=== PATIENT | male | born 1985 | race Caucasian/White ===

== ENCOUNTER 2024-08-17 00:18 | Inpatient (IN) | payer MEDICAID, SELFPAY ==
--- NOTE | ~2024-08-17 | CT_ITS ---
EXAMINATION: CT HEAD WITHOUT CONTRAST CLINICAL INFORMATION: Head injury. COMPARISON: None available. TECHNIQUE: Contiguous axial imaging was performed from the skull base to vertex without intravenous administration of contrast. This CT examination was performed using dose optimization techniques as appropriate, variously including the following: *Automated exposure control. *Adjustment of mA and/or kV according to patient size (this includes techniques or standardized protocols for targeted exams where dose is matched to indication/reason for exam; i.e. extremities or head). *Use of iterative reconstruction technique. DLP: 603 mGy-cm FINDINGS: There is no evidence of acute intracranial hemorrhage or edematous territorial infarction. Boudreaux-white matter differentiation is preserved. There is no abnormal attenuation within the brain parenchyma. The ventricles are normal in morphology and size. No evidence for obstructive hydrocephalus. No abnormal mass effect or midline shift. No extra-axial fluid collections. No acute soft tissue or osseous abnormalities. Moderate mucosal thickening of the paranasal sinuses. The mastoid air cells and middle ear cavities are clear. CT/CT head/brain wo IV con IMPRESSION: 1. No evidence of acute intracranial hemorrhage or edematous territorial infarction. 2. Moderate sinonasal mucosal disease. Electronically signed by: Jasvir Bustillo DO 08/17/2024 10:38 PM EDT
[2024-08-17 00:26] VITALS: BP 116/83; PULSE 105; RESP 20; TEMP 36.8; O2SAT 98; BMI 26.4
[2024-08-17 01:04] LABS: Hematocrit 41.9 % (42.0-52.0); Hemoglobin 13.9 g/dl (14.0-18.0); Mean Corpuscular HGB Conc 33.2 g/dl (31.0-36.0); Mean Corpuscular Hemoglobin 25.8 pg (27.0-33.0); Mean Corpuscular Volume 77.7 fL (80.0-98.0); Platelet Count 412 X10*3/uL (160-400); Red Blood Count 5.39 X10*6/uL (4.60-5.80); Red Cell Distribution Width 14.8 % (11.0-16.0); White Blood Count 10.6 X10*3/uL (4.8-10.8)
[2024-08-17 01:18] LABS: Alanine Aminotransferase 33 U/L (0-40); Albumin Level 4.3 g/dL (3.5-5.0); Alkaline Phosphatase 109 U/L (39-117); Anion Gap 17 (12-20); Aspartate Amino Transferase 24 U/L (5-37); Bilirubin Total 0.5 mg/dL (0.0-1.0); Blood Urea Nitrogen 15 mg/dL (9-16); Calcium 8.7 mg/dL (8.4-10.2); Carbon Dioxide 20 mmol/L (22-29); Chloride 108 mmol/L (96-108); Creatinine Clr Calc Pharmacy 100.6; Estimated Glomerular Filt Rate > 60; Ethanol 143 mg/dL; Glucose Random 131 mg/dL (60-115); Potassium 3.6 mmol/L (3.3-5.1); Sodium 141 mmol/L (135-145); Total Protein 7.3 g/dL (6.5-8.0)
--- NOTE | 2024-08-17 01:50 | ED_ITS ---
HPI - Psych General Chief Complaint: Psychiatric Symptoms Stated Complaint: SI, ETOH Time Seen by Provider: 08/17/24 01:38 Source: patient Mode of arrival: ambulatory Limitations: no limitations History of Present Illness ED Provider: Dr. Jane Zacarias HPI Narrative: Patient comes to the emergency room complaining of suicidal ideation. Patient states that earlier today she had an argument with his . Patient states that he drank a lot of alcohol, stated earlier today that he has wanted to . Patient states that today he drank alcohol smoke marijuana. Patient was planning to kill himself by getting into a car accident. However, patient states that he stopped himself because he has an 8-year-old daughter and he needs to be there for her. Patient denies HI Related Data Allergies Allergy/AdvReac Type Severity Reaction Status Date / Time No Known Allergies Allergy Verified 08/17/24 00:29 Review of Systems 2 Review of Systems: Constitutional : No Weight loss, No Fever, No Chills, No Night Sweats, No Fatigue, No Malaise ENT/Mouth : No Hearing loss, No Ear Pain, No Nasal Congestion, No Sinus Pain, No Hoarseness, No sore throat, No Rhinorrhea, No Swallowing Difficulty Eyes: No Eye Pain, No Swelling, No Redness, No Foreign Body, No Discharge, No Vision Changes Cardiovascular : No Chest Pain, No SOB, No Dyspnea on Exertion, No Orthopnea, No Edema, No Palpitations Respiratory : No Cough, No Sputum, No Wheezing, No Smoke Exposure, No Dyspnea Gastrointestinal : No Nausea, No Vomiting, No Diarrhea, No Constipation, No abdominal Pain, No Hematochezia, No Melena Genitourinary : no irregular bleeding, No Dysuria, No Urinary Frequency, No Hematuria, No Urinary Incontinence, No Urgency, No Flank Pain, No Urinary Flow Changes, No Hesitancy Musculoskeletal : No joint pain, No Myalgias, No Joint Swelling Skin : No Skin Lesions, No rash Neuro : No Weakness, No Numbness, No Paresthesias, No Loss of Consciousness, No Dizziness, No Headache Psych : Complaining of anxiety, depression, polysubstance abuse, alcohol abuse Heme/Lymph: No Bruising, No Bleeding,No Lymphadenopathy Endocrine : No Polyuria, No Polydipsia, No Temperature Intolerance PMFSH Past Medical History Medical History (Updated 08/17/24 @ 01:57 by Jane Zacarias MD) Anxiety and depression Social History Social History Alcohol intake: current Alcohol intake frequency: 3 or more drinks per day Alcohol type: hard liquor Smoked in Last 30 Days: Yes Use of substances other than those prescribed or required for medical reasons: Yes Substance Use Type: Marijuana Substance Use Frequency: Chronic Longstanding Last Used Substance: Just Prior to Admission Advance Directives: No Advance Directives Information Provided: No Physical Exam 2 Vital Signs: Vital Signs: Last Vital Signs Temp 98.4 F 08/17/24 05:55 Pulse 113 H 08/17/24 05:55 Resp 17 08/17/24 05:55 BP 116/86 08/17/24 05:55 Pulse Ox 95 08/17/24 05:55 O2 Del Method Room Air 08/17/24 05:55 BMI result Body Mass Index 26.4 Const: Other: Appearance: Alert. Oriented X3. No acute distress. Calm, cooperative, clinically sober Eyes: Pupils equal, round and reactive to light. ENT: Pharynx normal. Neck: Normal inspection. Neck supple. No lymph nodes noted. No crepitus CVS: Normal heart rate and rhythm. Pulses normal. Normal S1 and S2 Respiratory: No respiratory distress. Breath sounds normal. No Wheezing. No rales Abdomen: Soft and nontender. No rigidity. No distention. Skin: Skin warm and dry. Normal skin color. Normal skin turgor. Extremities: No lower extremity edema. No Lacerations. No Rash Neuro: Oriented X 3. No motor deficit. No sensory deficit. Moving all extremities. No slurred speech. CN 2 through 12 grossly intact Psych: calm, cooperative, normal affect Course Course Course Narrative: Patient is on a Section 12 Waiting to be seen by the care team Reevaluation(s) Reevaluation #1: Physician observation continued. Uneventful night. Vital signs stable. No complaints from nursing overnight. Med reconciliation reviewed and done. Pending disposition. Will continue to monitor. Medical Decision Making Medical Decision Making [facility] Narrative: My interpretation of labs, no significant hematology abnormality. Chemistry within normal limits, ETOH 143. -care team consult pending -patient is on a Section -physician observation started at 02:00 Differential Diagnosis Differential Diagnoses: The differential diagnosis associated with the presentation includes (Anxiety, depression, suicide ideation) Admission/Observation Consideration of admission/observation: Escalation of care including admission/observation considered (Patient is under physician observation waiting to be seen by the care team, patient on a Section 12) Lab Data MDM Lab Attestation statement: I reviewed the patient's lab results. 08/17/24 00:57 08/17/24 00:57 Labs: Lab Results 08/17/24 08/17/24 Range/Units 00:57 06:09 WBC 10.6 (4.8-10.8) X10*3/uL RBC 5.39 (4.60-5.80) X10*6/uL Hgb 13.9 L (14.0-18.0) g/dl Hct 41.9 L (42.0-52.0) % MCV 77.7 L (80.0-98.0) fL MCH 25.8 L (27.0-33.0) pg MCHC 33.2 (31.0-36.0) g/dl RDW 14.8 (11.0-16.0) % Plt Count 412 H (160-400) X10*3/uL MPV 9.0 L (9.4-12.4) fL Absolute Nucleated RBC 0.000 (0.0-0.012) X10*3/uL Nucleated RBC % (auto) 0.0 (0.0-0.2) /100WBC Sodium 141 (135-145) mmol/L Potassium 3.6 (3.3-5.1) mmol/L Chloride 108 (96-108) mmol/L Carbon Dioxide 20 L (22-29) mmol/L Anion Gap 17 (12-20) BUN 15 (9-16) mg/dL Creatinine 1.06 (0.5-1.4) mg/dL Estim Creat Clear Calc 100.6 Estimated GFR > 60 Random Glucose 131 H (60-115) mg/dL Calcium 8.7 (8.4-10.2) mg/dL Total Bilirubin 0.5 (0.0-1.0) mg/dL AST 24 (5-37) U/L ALT 33 (0-40) U/L Alkaline Phosphatase 109 (39-117) U/L Total Protein 7.3 (6.5-8.0) g/dL Albumin 4.3 (3.5-5.0) g/dL Urine Color Yellow Urine Appearance Clear Urine pH 5.5 (5.0-9.0) Ur Specific [place] 1.025 (1.005-1.025) Urine Protein Trace (Neg-Trace) mg/dL Urine Glucose (UA) Negative (Negative) mg/dL Urine Ketones Trace (Negative) mg/dL Urine Blood Negative (Negative) Urine Nitrite Negative (Negative) Ur Leukocyte Esterase Negative (Negative) Salicylates < 5.0 L (15-30) mg/dL Urine Opiates Screen Not Detected (Not Detect) Ur Buprenorphine Scrn Not Detected (Not Detect) ng/mL Ur Oxycodone Screen Not Detected (Not Detect) ng/mL Urine Methadone Screen Not Detected (Not Detect) ng/mL Urine Fentanyl Screen Not Detected (Not Detect) Acetaminophen < 3 (<30) mcg/mL Ur Barbiturates Screen Not Detected (Not Detect) Ur Phencyclidine Scrn Not Detected (Not Detect) Ur Amphetamines Screen Not Detected (Not Detect) U Benzodiazepines Scrn Not Detected (Not Detect) Urine Cocaine Screen POSITIVE H (Not Detect) U Marijuana (THC) Screen POSITIVE H (Not Detect) Ethyl Alcohol 143 mg/dL Critical Care Time Critical Care Time Critical Care Time: Yes Total Critical Care Time: 35 Attestation: I have personally provided critical care time. Time includes review of lab data, radiology results, discussion with consultants, and monitoring for potential decompensation. Intervention performed as documented. Discharge Plan Discharge Clinical Impression: Suicidal ideation, Polysubstance abuse Patient Disposition: Still a Patient Interventions: Garden-Suicide Risk Severity Scale Last Done: 08/17/24 01:00 Print Language: English
--- NOTE | 2024-08-17 01:59 | PC.NURSE ---
Took report from LAURA Ireland, Pt being admitted to room 6 .
[2024-08-17 02:21] LABS: Acetaminophen LAB < 3 mcg/mL (<30); Salicylate < 5.0 mg/dL (15-30)
--- NOTE | 2024-08-17 02:39 | PC.NURSE ---
Pt given a sandwich and juice . a blanket
[2024-08-17 05:55] VITALS: BP 116/86; PULSE 113; RESP 17; TEMP 36.9; O2SAT 95
[2024-08-17 06:19] LABS: Appearance Urine Clear; Color Urine Yellow; Glucose Urine UA Negative (Negative); Leukocyte Esterase Urine Negative (Negative); Nitrite Urine Negative (Negative); PH 5.5 (5.0-9.0); Specific Gravity - Urine 1.025 (1.005-1.025); Urine Blood Negative (Negative); Urine Ketones Trace mg/dL (Negative); Urine Protein Trace mg/dL (Neg-Trace)
[2024-08-17 06:26] LABS: Amphetamine Screen Urine Not Detected (Not Detect); Barbiturates, Urine Not Detected (Not Detect); Benzodiazepines Screen Urine Not Detected (Not Detect); Buprenorphine Scr Not Detected (Not Detect); Cannabinoid Screen Urine POSITIVE (Not Detect); Cocaine Screen Urine POSITIVE (Not Detect); Fentanyl, urine Not Detected (Not Detect); Methadone Screen, Urine Not Detected (Not Detect); Opiate Screen Urine Not Detected (Not Detect); Oxycodone Screen Urine Not Detected (Not Detect); Phencyclidine Screen Urine Not Detected (Not Detect)
[2024-08-17 09:58] VITALS: BP 125/78; PULSE 85; RESP 16; O2SAT 95
--- NOTE | 2024-08-17 10:02 | ECG_ITS ---
Test Reason : psych admit,check qt interval Blood Pressure : / mmHG Vent. Rate : 076 BPM Atrial Rate : 076 BPM P-R Int : 120 ms QRS Dur : 078 ms QT Int : 370 ms P-R-T Axes : 043 039 030 degrees QTc Int : 416 ms Normal sinus rhythm Normal ECG No previous ECGs available Referred By: Jane Zacarias Electronically Signed By:JOSE GILLILAND MD
--- NOTE | 2024-08-17 10:47 | MHC.CARE ---
patient seen by CARE team, appears appropriate for and is agreeable to an adult iploc
[2024-08-17] MEDS: Ibuprofen 400 MG TABLET PO (10:58)
--- NOTE | 2024-08-17 15:03 | PHA.MEDREC ---
Addendum entered by Mihaela Foy RPh 08/17/24 15:17: ANGÉLICA reviewed Original Note: Pharmacy Consult ? Medication Reconciliation Pharmacy has reviewed the medication reconciliation done by nursing.
--- NOTE | 2024-08-17 16:04 | PC.NURSE ---
RN to RN with Tannery on M5. Pt has been calm, sleeping on and off.
[2024-08-17] MEDS: Acetaminophen 325 MG TABLET 650 MG PO (16:12)
[2024-08-17 18:16] VITALS: BP 120/83; PULSE 74; RESP 18; TEMP 36.8; O2SAT 97
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
[2024-08-17] MEDS: Thiamine HCL 100 MG TABLET PO (18:26)
[2024-08-17] MEDS: Nicotine Polacrilex 2 MG GUM BUCCAL (18:27)
[2024-08-17] MEDS: hydrOXYzine HCL 25 MG TABLET PO (18:27)
[2024-08-17 20:00] VITALS: BP 138/99; PULSE 88; TEMP 36.7; O2SAT 97
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
[2024-08-18 09:02] VITALS: BP 115/70; PULSE 75; RESP 16; TEMP 36.7; O2SAT 96
[2024-08-18 09:04] LABS: Alanine Aminotransferase 24 U/L (0-40); Albumin Level 3.7 g/dL (3.5-5.0); Alkaline Phosphatase 106 U/L (39-117); Anion Gap 10 (12-20); Aspartate Amino Transferase 15 U/L (5-37); Bilirubin Total 0.3 mg/dL (0.0-1.0); Blood Urea Nitrogen 13 mg/dL (9-16); Calcium 9.3 mg/dL (8.4-10.2); Carbon Dioxide 29 mmol/L (22-29); Chloride 105 mmol/L (96-108); Cholesterol 145 mg/dL (<200); Creatinine Clr Calc Pharmacy 119.8; Estimated Glomerular Filt Rate > 60; Glucose Fasting 150 mg/dL (60-99); HDL Cholesterol 41 mg/dL (>40); Iron 62 mcg/dL (45-160); LDL Cholesterol Calculated 75 mg/dL (<100); Percent Iron Saturation 21 % (15-50); Potassium 4.4 mmol/L (3.3-5.1); Sodium 140 mmol/L (135-145); Total Iron Binding Capacity 293 mcg/dL (228-428); Total Protein 6.3 g/dL (6.5-8.0); Triglycerides 148 mg/dL (<150); Unsaturated Iron Binding 231 ug/dL
[2024-08-18 09:24] LABS: Folate 8.6 ng/mL (> or = 4.0); Vitamin B12 258 pg/mL (200-900)
[2024-08-18] MEDS: Thiamine HCL 100 MG TABLET PO (11:08)
[2024-08-18] MEDS: Escitalopram Oxalate 10 MG TABLET PO (11:08)
[2024-08-18] MEDS: Nicotine 21 MG PATCH.TD24 TRANSDERMA (11:09)
--- NOTE | 2024-08-18 12:17 | MHC.RECOVRN ---
AUDIT-C Brief Intervention Pt had positive screen for unhealthy alcohol use on admission, subsequently met with t/w to discuss alcohol use and recovery supports/options. This principal technical writer met with patient to discuss current alcohol use and concerns related to increased risk of alcohol related problems.? Pt reports he has been drinking for as far back as he can remember and as of late has been drinking 750ml bottle of Bacardi/day. Discussed how alcohol use has impacted health, including negative impact on mental health and relationship with family Withdrawal History: N/A Treatment History: N/A Supports:? and children Discussed risk reduction strategies including drinking below the recommended limit. Provided pt with written resources including information on inpatient and outpatient treatment, EARNESTINE, harm reduction, and recovery coaching. Pt plans to consider EARNESTINE and referral to [facility] upon D/C. Pt provided with t/w contact information if questions or concerns arise. Denies other questions or concerns at this time. T/W will F/U with pt tomorrow on decision for outpatient tx and possibly recommend start on EARNESTINE. Report to ACS team and nurse Irvin.
[2024-08-18] MEDS: Acetaminophen 325 MG TABLET 650 MG PO (18:08)
[2024-08-18 20:00] VITALS: BP 117/63; PULSE 74; RESP 16; TEMP 36.6; O2SAT 97
--- NOTE | 2024-08-18 20:07 | PC.NURSE ---
CIWA for 08/18/24 @ 1600 entered by this RN per Primary RN report
[2024-08-19 08:40] VITALS: BP 141/81; PULSE 65; RESP 16; TEMP 36.3; O2SAT 98
[2024-08-19] MEDS: Escitalopram Oxalate 10 MG TABLET PO (08:53)
[2024-08-19] MEDS: Thiamine HCL 100 MG TABLET PO (08:53)
--- NOTE | 2024-08-19 09:35 | HO.PSYCHPN ---
Subjective Subjective Date of Service: 08/19/24 Reason For Visit: SI alcohol use dx Subjective Notes: Conditional Voluntary Interim History: Patient was seen and discussed in rounds today. Records and plans were reviewed. He is settling in fairly well. He is eating adequately but not sleeping well and I increase the trazodone to 100 mg. Side effects were reviewed again including priapism. No SI. No complaints or side effects. No changes were made today Review of Systems Review of Systems Poor sleep Yes all other systems are reviewed and are negative Mental Status Exam Mental Status Exam Narrative: In today's visit he is alert, oriented, pleasant and cooperative. Soft-spoken speech. Minimal eye contact. Affect is appropriate and subdued. No signs of psychosis. No delusions. No AVH. He is able to move all limbs. No abnormalities of gait. Cognitively he is grossly intact. Judgment is intact Diagnostics Vital Signs (24Hr): Vital Signs - 24 hr 08/18/24 20:00 Temperature 97.9 F Pulse Rate 74 Respiratory Rate 16 Blood Pressure 117/63 Pulse Oximetry 97 Oxygen Delivery Method Room Air BMI result Body Mass Index 26.4 Labs 08/17/24 00:57 08/18/24 08:16 Labs: Laboratory Results - last 48 hr 08/18/24 08:16 Sodium 140 Potassium 4.4 D Chloride 105 Carbon Dioxide 29 Anion Gap 10 L BUN 13 Creatinine 0.89 Estim Creat Clear Calc 119.8 Estimated GFR > 60 Fasting Glucose 150 H Calcium 9.3 D Iron 62 TIBC 293 % Saturation 21 Unsat Iron Binding 231 Total Bilirubin 0.3 AST 15 ALT 24 Alkaline Phosphatase 106 Total Protein 6.3 L Albumin 3.7 Triglycerides 148 Cholesterol 145 LDL Cholesterol, Calc 75 HDL Cholesterol 41 Vitamin B12 258 Folate 8.6 Imaging Radiology Impressions: ITS Impressions Head CT 08/17/24 20:17 IMPRESSION: 1. No evidence of acute intracranial hemorrhage or edematous territorial infarction. 2. Moderate sinonasal mucosal disease. Electronically signed by: Jasvir Bustillo DO 08/17/2024 10:38 PM EDT Medications Medications Current Medications Acetaminophen (Acetaminophen 325 Mg Tablet) 650 mg PO Q6H PRN PRN Reason: Headache/Pain Mild Scale (1-3) Last Admin: 08/18/24 18:08 Dose: 650 mg Al Hydroxide/Mg Hydroxide (Magnesium Hydrox/Alum Hydrox 30 Ml Oral.Susp) 30 ml PO Q6H PRN PRN Reason: Heartburn/Nausea Escitalopram Oxalate (Escitalopram Oxalate 10 Mg Tablet) 10 mg PO DAILY [facility] Last Admin: 08/19/24 08:53 Dose: 10 mg Hydroxyzine HCl (Hydroxyzine Hcl 25 Mg Tablet) 25 mg PO Q6H PRN PRN Reason: Anxiety Last Admin: 08/17/24 18:27 Dose: 25 mg Lorazepam (Lorazepam 1 Mg Tablet) 1 mg PO Q2H PRN PRN Reason: CIWA 8-11 Lorazepam (Lorazepam 1 Mg Tablet) 2 mg PO Q2H PRN PRN Reason: CIWA 12-15 Lorazepam (Lorazepam 1 Mg Tablet) 3 mg PO Q2H PRN PRN Reason: CIWA > 15, and call Magnesium Hydroxide (Milk Of Magnesia 30 Ml Oral.Susp) 30 ml PO DAILY PRN PRN Reason: Constipation Nicotine (Nicotine 21 Mg Patch.Td24) 21 mg TRANSDERMA DAILY [facility] Last Admin: 08/19/24 08:53 Dose: Not Given Nicotine Polacrilex (Nicotine Polacrilex 2 Mg Gum) 2 mg BUCCAL Q2H PRN PRN Reason: Nicotine Cravings Last Admin: 08/17/24 18:27 Dose: 2 mg Thiamine HCl (Thiamine Hcl 100 Mg Tablet) 100 mg PO DAILY [facility] Last Admin: 08/19/24 08:53 Dose: 100 mg Trazodone HCl (Trazodone Hcl 50 Mg Tablet) 50 mg PO BEDTIME MRX1 PRN PRN Reason: Insomnia Allergies Allergies Allergy/AdvReac Type Severity Reaction Status Date / Time No Known Allergies Allergy Verified 08/17/24 00:29 Assessment & Plan Assessment & Plan (1) Major depression, recurrent, chronic: Status: Acute Code(s): F33.9 - Major depressive disorder, recurrent, unspecified (2) PTSD (post-traumatic stress disorder): Status: Acute Code(s): F43.10 - Post-traumatic stress disorder, unspecified Plan Luke meets criteria for IP LOC. He was placed on a CIWA protocol but does not appear to be showing much signs of withdrawals. He is interested in starting medication and we discussed options and initiated Lexapro 10 mg daily. Side effects were reviewed. Outpatient referral to be made before discharge. 08/19: Continue current regimen and plans. Increase trazodone to 100 mg Patient educated on: medication risk/benefits Reason for continued inpatient stay Substantial Risk for: rapid decompensation Time Spent With Patient Time: Total time managing care of this patient today ____ minutes.
--- NOTE | 2024-08-19 10:02 | MHC.RECOVRN ---
Return visit to pt. following yesterdays meeting to assess his choices for recovery POC. Pt has reviewed the literature left to him yesterday along with information obtained from our discussion and denies any questions. He would like to try Naltrexone (injectable form) for his EARNESTINE part of his POC. T/W contacted senior occupational therapist provider Brandee Howell and requested order for Naltrexone oral form to determine pt's tolerance of the medication. Order obtained for Naltrexone 25mg PO QD x 3 days then increase to 50mg PO QD if pt tolerates. Referral placed to [facility] nurse Hendrix to F/U with pt. and schedule clinic appt. for medication f/u. Report to pt's nurse Irvin and ACS team provided. ACS available for F/U PRN
[2024-08-19] MEDS: Naltrexone HCl 50 MG TABLET 25 MG PO (12:03)
[2024-08-19 19:53] VITALS: BP 133/87; PULSE 85; RESP 20; TEMP 35.8; O2SAT 98
[2024-08-19] MEDS: traZODone HCL 100 MG TABLET PO (22:21)
[2024-08-19] MEDS: LORazepam 1 MG TABLET PO (22:21)
[2024-08-20 05:00] VITALS: BP 117/74; PULSE 86; RESP 18; TEMP 36.8; O2SAT 94
--- NOTE | 2024-08-20 08:59 | HO.PSYCHPN ---
Subjective Subjective Date of Service: 08/20/24 Reason For Visit: SI alcohol use dx Subjective Notes: Conditional Voluntary Interim History: Patient was seen and discussed in rounds today. Records and plans were reviewed. He is doing much better and has been stable. He is mostly in his room. He is not scoring on his CIWA and that was discontinued in addition to the associated Ativan orders. He had some anxiety and slight nausea to the naltrexone but he would like to stay with it and increase it in a day. Eating and sleeping adequately. No SI. Review of Systems Review of Systems Yes all other systems are reviewed and are negative Mental Status Exam Mental Status Exam Narrative: In today's visit he is alert, oriented, pleasant and cooperative. Soft-spoken speech. Minimal eye contact. Affect is appropriate and subdued. No signs of psychosis. No delusions. No AVH. He is able to move all limbs. No abnormalities of gait. Cognitively he is grossly intact. Judgment is intact Diagnostics Vital Signs (24Hr): Vital Signs - 24 hr 08/19/24 19:53 08/20/24 05:00 Temperature 96.4 F L 98.2 F Pulse Rate 85 86 Respiratory Rate 20 18 Blood Pressure 133/87 117/74 Pulse Oximetry 98 94 Oxygen Delivery Method Room Air Room Air BMI result Body Mass Index 26.4 Labs 08/17/24 00:57 08/18/24 08:16 Labs: Laboratory Results - last 48 hr 08/18/24 08:16 Sodium 140 Potassium 4.4 D Chloride 105 Carbon Dioxide 29 Anion Gap 10 L BUN 13 Creatinine 0.89 Estim Creat Clear Calc 119.8 Estimated GFR > 60 Fasting Glucose 150 H Calcium 9.3 D Iron 62 TIBC 293 % Saturation 21 Unsat Iron Binding 231 Total Bilirubin 0.3 AST 15 ALT 24 Alkaline Phosphatase 106 Total Protein 6.3 L Albumin 3.7 Triglycerides 148 Cholesterol 145 LDL Cholesterol, Calc 75 HDL Cholesterol 41 Vitamin B12 258 Folate 8.6 Imaging Radiology Impressions: ITS Impressions Head CT 08/17/24 20:17 IMPRESSION: 1. No evidence of acute intracranial hemorrhage or edematous territorial infarction. 2. Moderate sinonasal mucosal disease. Electronically signed by: Jasvir Bustillo DO 08/17/2024 10:38 PM EDT Medications Medications Current Medications Acetaminophen (Acetaminophen 325 Mg Tablet) 650 mg PO Q6H PRN PRN Reason: Headache/Pain Mild Scale (1-3) Last Admin: 08/18/24 18:08 Dose: 650 mg Al Hydroxide/Mg Hydroxide (Magnesium Hydrox/Alum Hydrox 30 Ml Oral.Susp) 30 ml PO Q6H PRN PRN Reason: Heartburn/Nausea Escitalopram Oxalate (Escitalopram Oxalate 10 Mg Tablet) 10 mg PO DAILY [facility] Last Admin: 08/19/24 08:53 Dose: 10 mg Hydroxyzine HCl (Hydroxyzine Hcl 25 Mg Tablet) 25 mg PO Q6H PRN PRN Reason: Anxiety Last Admin: 08/17/24 18:27 Dose: 25 mg Lorazepam (Lorazepam 1 Mg Tablet) 1 mg PO Q2H PRN PRN Reason: CIWA 8-11 Last Admin: 08/19/24 22:21 Dose: 1 mg Lorazepam (Lorazepam 1 Mg Tablet) 2 mg PO Q2H PRN PRN Reason: CIWA 12-15 Lorazepam (Lorazepam 1 Mg Tablet) 3 mg PO Q2H PRN PRN Reason: CIWA > 15, and call Magnesium Hydroxide (Milk Of Magnesia 30 Ml Oral.Susp) 30 ml PO DAILY PRN PRN Reason: Constipation Naltrexone HCl (Naltrexone Hcl 50 Mg Tablet) 25 mg PO DAILY [facility] Last Admin: 08/19/24 12:03 Dose: 25 mg Nicotine (Nicotine 21 Mg Patch.Td24) 21 mg TRANSDERMA DAILY [facility] Last Admin: 08/19/24 08:53 Dose: Not Given Nicotine Polacrilex (Nicotine Polacrilex 2 Mg Gum) 2 mg BUCCAL Q2H PRN PRN Reason: Nicotine Cravings Last Admin: 08/17/24 18:27 Dose: 2 mg Thiamine HCl (Thiamine Hcl 100 Mg Tablet) 100 mg PO DAILY [facility] Last Admin: 08/19/24 08:53 Dose: 100 mg Trazodone HCl (Trazodone Hcl 100 Mg Tablet) 100 mg PO BEDTIME MRX1 PRN PRN Reason: Insomnia Last Admin: 08/19/24 22:21 Dose: 100 mg Allergies Allergies Allergy/AdvReac Type Severity Reaction Status Date / Time No Known Allergies Allergy Verified 08/17/24 00:29 Assessment & Plan Assessment & Plan (1) Major depression, recurrent, chronic: Status: Acute Code(s): F33.9 - Major depressive disorder, recurrent, unspecified (2) PTSD (post-traumatic stress disorder): Status: Acute Code(s): F43.10 - Post-traumatic stress disorder, unspecified Plan Luke meets criteria for IP LOC. He was placed on a CIWA protocol but does not appear to be showing much signs of withdrawals. He is interested in starting medication and we discussed options and initiated Lexapro 10 mg daily. Side effects were reviewed. Outpatient referral to be made before discharge. 08/19: Continue current regimen and plans. Increase trazodone to 100 mg 08/20: Continue current plans and regimen. DC CIWA and Ativan orders Reason for continued inpatient stay Substantial Risk for: harm to self and med/psych decompensation Time Spent With Patient Time: Total time managing care of this patient today ____ minutes.
--- NOTE | 2024-08-20 09:37 | PC.NURSE ---
pt has been reporting difficulty sleeping at night and is currently asleep. Will reproach with morning scheduled medications
[2024-08-20] MEDS: Escitalopram Oxalate 10 MG TABLET PO (10:43)
[2024-08-20] MEDS: Naltrexone HCl 50 MG TABLET 25 MG PO (10:43)
[2024-08-20] MEDS: Thiamine HCL 100 MG TABLET PO (10:43)
[2024-08-20 14:35] VITALS: BP 138/78; PULSE 94; RESP 16; TEMP 36.6; O2SAT 97
[2024-08-20 20:00] VITALS: BP 149/91; PULSE 96; RESP 15; TEMP 36.4; O2SAT 95
[2024-08-20] MEDS: traZODone HCL 100 MG TABLET PO (20:45)
[2024-08-21 09:35] VITALS: BP 121/79; PULSE 69; RESP 16; TEMP 37.1; O2SAT 97
[2024-08-21] MEDS: Naltrexone HCl 50 MG TABLET 25 MG PO (09:36)
[2024-08-21] MEDS: Escitalopram Oxalate 10 MG TABLET PO (09:37)
[2024-08-21] MEDS: Thiamine HCL 100 MG TABLET PO (09:37)
--- NOTE | 2024-08-21 09:42 | HO.PSYCHPN ---
Subjective Subjective Date of Service: 08/21/24 Reason For Visit: SI alcohol use dx Interim History: met with patient; discussed with team; reviewed chart pt reports he's feeling way better. he denies any SI; says he wants to be sober, work and help his family. Reports sleeping well. Discussed after care and pt would like a program to help him with sobriety Mental Status Exam Mental Status Exam Narrative: Pt is alert and oriented; behavior is cooperative, friendly and calm; patient is not in distress; dressed in casual attire adequate hygiene; mood is described as way better and affect congruent; eye contact appropriate; Speech is normal rate, volume and prosody and not pressured; no psychomotor agitation/retardation present; thought process is organized and goal directed; Thought content is on tx; otherwise pertinent to relevant topics and without any delusional content, paranoid ideations or grandiosity; denies any SI/HI. There is no evidence of perceptual disturbance. Patients insight and judgment appear intact. Diagnostics Vital Signs (24Hr): Vital Signs - 24 hr 08/20/24 14:35 08/20/24 20:00 Temperature 97.8 F 97.5 F Pulse Rate 94 96 Respiratory Rate 16 15 Blood Pressure 138/78 149/91 H Pulse Oximetry 97 95 Oxygen Delivery Method Room Air BMI result Body Mass Index 26.4 Labs 08/17/24 00:57 08/18/24 08:16 Imaging Radiology Impressions: ITS Impressions Head CT 08/17/24 20:17 IMPRESSION: 1. No evidence of acute intracranial hemorrhage or edematous territorial infarction. 2. Moderate sinonasal mucosal disease. Electronically signed by: Jasvri Bustillo DO 08/17/2024 10:38 PM EDT Medications Medications Current Medications Acetaminophen (Acetaminophen 325 Mg Tablet) 650 mg PO Q6H PRN PRN Reason: Headache/Pain Mild Scale (1-3) Last Admin: 08/18/24 18:08 Dose: 650 mg Al Hydroxide/Mg Hydroxide (Magnesium Hydrox/Alum Hydrox 30 Ml Oral.Susp) 30 ml PO Q6H PRN PRN Reason: Heartburn/Nausea Escitalopram Oxalate (Escitalopram Oxalate 10 Mg Tablet) 10 mg PO DAILY [facility] Last Admin: 08/21/24 09:37 Dose: 10 mg Hydroxyzine HCl (Hydroxyzine Hcl 25 Mg Tablet) 25 mg PO Q6H PRN PRN Reason: Anxiety Last Admin: 08/17/24 18:27 Dose: 25 mg Magnesium Hydroxide (Milk Of Magnesia 30 Ml Oral.Susp) 30 ml PO DAILY PRN PRN Reason: Constipation Naltrexone HCl (Naltrexone Hcl 50 Mg Tablet) 25 mg PO DAILY [facility] Last Admin: 08/21/24 09:36 Dose: 25 mg Nicotine (Nicotine 21 Mg Patch.Td24) 21 mg TRANSDERMA DAILY [facility] Last Admin: 08/21/24 09:38 Dose: Not Given Nicotine Polacrilex (Nicotine Polacrilex 2 Mg Gum) 2 mg BUCCAL Q2H PRN PRN Reason: Nicotine Cravings Last Admin: 08/17/24 18:27 Dose: 2 mg Thiamine HCl (Thiamine Hcl 100 Mg Tablet) 100 mg PO DAILY [facility] Last Admin: 08/21/24 09:37 Dose: 100 mg Trazodone HCl (Trazodone Hcl 100 Mg Tablet) 100 mg PO BEDTIME MRX1 PRN PRN Reason: Insomnia Last Admin: 08/20/24 20:45 Dose: 100 mg Allergies Allergies Allergy/AdvReac Type Severity Reaction Status Date / Time No Known Allergies Allergy Verified 08/17/24 00:29 Assessment & Plan Assessment & Plan (1) Major depression, recurrent, chronic: Status: Acute Code(s): F33.9 - Major depressive disorder, recurrent, unspecified (2) PTSD (post-traumatic stress disorder): Status: Acute Code(s): F43.10 - Post-traumatic stress disorder, unspecified Plan Luke meets criteria for IP LOC. He was placed on a CIWA protocol but does not appear to be showing much signs of withdrawals. He is interested in starting medication and we discussed options and initiated Lexapro 10 mg daily. Side effects were reviewed. Outpatient referral to be made before discharge. 08/19: Continue current regimen and plans. Increase trazodone to 100 mg 08/20: Continue current plans and regimen. DC CIWA and Ativan orders 08/21 says doing much better; mood good, no SI, future oriented; wants to discuss aftercare Patient educated on: diagnosis, medication risk/benefits, substance abuse and therapeutic strategies Informed Consent: understands Reason for continued inpatient stay Substantial Risk for: stable for discharge Time Spent With Patient Time: Total time managing care of this patient today ____ minutes.
--- NOTE | 2024-08-21 14:32 | MHC.RECOVRN ---
[facility] appt upon discharge Met with patient in his room on M5, after his meeting with transport medic Fifi he requested to see us after discharge. I introduced myself and advised him to come see us as a walk in upon his discharge from unit, to see the office, and get scheduled. Patient verbally agrees to meeting with us upon discharge.
[2024-08-21 19:46] VITALS: BP 130/85; PULSE 77; RESP 16; TEMP 36.4; O2SAT 95
[2024-08-21] MEDS: traZODone HCL 100 MG TABLET PO (22:14)
[2024-08-22 08:00] VITALS: BP 115/62; PULSE 61; RESP 18; O2SAT 97
[2024-08-22] MEDS: Naltrexone HCl 50 MG TABLET 25 MG PO (08:31)
[2024-08-22] MEDS: Escitalopram Oxalate 10 MG TABLET PO (08:31)
[2024-08-22] MEDS: Thiamine HCL 100 MG TABLET PO (08:31)
--- NOTE | 2024-08-22 09:57 | P.PNPSI_ITS ---
Subjective Subjective Date of Service: 08/22/24 Reason For Visit: SI alcohol use dx Interim History: met with patient; discussed with team Patient continues report that he is in a good mood, feeling much better, and eager to discharge to get back to his family and to get back to work. [employer] and social insurance analyst discussed at patient's insurance still pending and as of yet he does not have outpatient providers; patient was very ambivalent, wanting to obtain such appointments but also feeling strong need to get back to his family and back to work. Ultimately he decided would discharge tomorrow and get appointments on his own. Mental Status Exam Mental Status Exam Narrative: Pt is alert and oriented; behavior is cooperative, friendly and calm; patient is not in distress; dressed in casual attire adequate hygiene; mood is described as good and affect congruent; eye contact appropriate; Speech is normal rate, volume and prosody and not pressured; no psychomotor agitation/retardation present; thought process is organized and goal directed; Thought content is on tx; otherwise pertinent to relevant topics and without any delusional content, paranoid ideations or grandiosity; denies any SI/HI. There is no evidence of perceptual disturbance. Patients insight and judgment fair Diagnostics Vital Signs (24Hr): Vital Signs - 24 hr 08/21/24 19:46 08/22/24 08:00 Temperature 97.6 F Pulse Rate 77 61 Respiratory Rate 16 18 Blood Pressure 130/85 115/62 Pulse Oximetry 95 97 Oxygen Delivery Method Room Air Room Air BMI result Body Mass Index 26.4 Labs 08/17/24 00:57 08/18/24 08:16 Imaging Radiology Impressions: ITS Impressions Head CT 08/17/24 20:17 IMPRESSION: 1. No evidence of acute intracranial hemorrhage or edematous territorial infarction. 2. Moderate sinonasal mucosal disease. Electronically signed by: Jasvir Bustillo DO 08/17/2024 10:38 PM EDT RP Medications Medications Current Medications Acetaminophen (Acetaminophen 325 Mg Tablet) 650 mg PO Q6H PRN PRN Reason: Headache/Pain Mild Scale (1-3) Last Admin: 08/18/24 18:08 Dose: 650 mg Al Hydroxide/Mg Hydroxide (Magnesium Hydrox/Alum Hydrox 30 Ml Oral.Susp) 30 ml PO Q6H PRN PRN Reason: Heartburn/Nausea Escitalopram Oxalate (Escitalopram Oxalate 10 Mg Tablet) 10 mg PO DAILY [facility] Last Admin: 08/22/24 08:31 Dose: 10 mg Hydroxyzine HCl (Hydroxyzine Hcl 25 Mg Tablet) 25 mg PO Q6H PRN PRN Reason: Anxiety Last Admin: 08/17/24 18:27 Dose: 25 mg Magnesium Hydroxide (Milk Of Magnesia 30 Ml Oral.Susp) 30 ml PO DAILY PRN PRN Reason: Constipation Naltrexone HCl (Naltrexone Hcl 50 Mg Tablet) 25 mg PO DAILY [facility] Last Admin: 08/22/24 08:31 Dose: 25 mg Nicotine (Nicotine 21 Mg Patch.Td24) 21 mg TRANSDERMA DAILY [facility] Last Admin: 08/22/24 08:32 Dose: Not Given Nicotine Polacrilex (Nicotine Polacrilex 2 Mg Gum) 2 mg BUCCAL Q2H PRN PRN Reason: Nicotine Cravings Last Admin: 08/17/24 18:27 Dose: 2 mg Thiamine HCl (Thiamine Hcl 100 Mg Tablet) 100 mg PO DAILY [facility] Last Admin: 08/22/24 08:31 Dose: 100 mg Trazodone HCl (Trazodone Hcl 100 Mg Tablet) 100 mg PO BEDTIME MRX1 PRN PRN Reason: Insomnia Last Admin: 08/21/24 22:14 Dose: 100 mg Allergies Allergies Allergy/AdvReac Type Severity Reaction Status Date / Time No Known Allergies Allergy Verified 08/17/24 00:29 Assessment & Plan Assessment & Plan (1) Major depression, recurrent, chronic: Status: Acute Code(s): F33.9 - Major depressive disorder, recurrent, unspecified (2) PTSD (post-traumatic stress disorder): Status: Acute Code(s): F43.10 - Post-traumatic stress disorder, unspecified Plan Luke meets criteria for IP LOC. He was placed on a CIWA protocol but does not appear to be showing much signs of withdrawals. He is interested in starting medication and we discussed options and initiated Lexapro 10 mg daily. Side effects were reviewed. Outpatient referral to be made before discharge. 08/19: Continue current regimen and plans. Increase trazodone to 100 mg 08/20: Continue current plans and regimen. DC CIWA and Ativan orders 08/21 says doing much better; mood good, no SI, future oriented; wants to discuss aftercare 08/22 Patient continues report that he is in a good mood, feeling much better, and eager to discharge to get back to his family and to get back to work. [employer] and social insurance analyst discussed at patient's insurance still pending and as of yet he does not have outpatient providers; patient was very ambivalent, wanting to obtain such appointments but also feeling strong need to get back to his family and back to work. Ultimately he decided would discharge tomorrow and get appointments on his own. -patient has remained in good behavioral and impulse control throughout his time in the unit. He is in a good mood, future oriented and wants discharge. His request for discharge honored. Patient educated on: diagnosis, medication risk/benefits and substance abuse Informed Consent: understands Reason for continued inpatient stay Substantial Risk for: stable for discharge Time Spent With Patient Time: Total time managing care of this patient today ____ minutes.
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
[2024-08-22 20:00] VITALS: RESP 16
[2024-08-22] MEDS: traZODone HCL 100 MG TABLET PO (20:51)
[2024-08-23 08:00] VITALS: BP 111/66; PULSE 69; RESP 18; TEMP 36.4; O2SAT 97
[2024-08-23] MEDS: Thiamine HCL 100 MG TABLET PO (08:02)
[2024-08-23] MEDS: Naltrexone HCl 50 MG TABLET 25 MG PO (08:02)
[2024-08-23] MEDS: Escitalopram Oxalate 10 MG TABLET PO (08:02)
[2024-08-23] MEDS: Naloxone HCl Nasal TAKE HOME 4 MG SPRAY 8 MG NOSTRILALT (08:03)
== END 2024-08-23 11:00 | disposition home or self-care (01) | DRG 751 ==
LOC: HO.ED 08:29 → HO.PM5 14:54
PROVIDERS: Social Worker; Admitting Provider Psychiatry & Neurology Psychiatry; Emergency Provider Emergency Medicine; Visit Provider Psychiatry & Neurology Psychiatry
DX: F33.2 Major depressive disorder, recurrent severe without psychotic features (principal); R45.851 Suicidal ideations; F14.90 Cocaine use, unspecified, uncomplicated; F17.210 Nicotine dependence, cigarettes, uncomplicated; F10.10 Alcohol abuse, uncomplicated; Z71.6 Tobacco abuse counseling; F43.10 Post-traumatic stress disorder, unspecified; F41.9 Anxiety disorder, unspecified; Y90.6 Blood alcohol level of 120-199 mg/100 ml; Z62.810 Personal history of physical and sexual abuse in childhood; Z79.899 Other long term (current) drug therapy
CPT/HCPCS: 36415; 70450; 80053; 80061; 80143; 80179; 80307; 81003; 82607; 82746; 83540; 85027; 93005; 99285; S9485

== ENCOUNTER → 2024-08-17 10:02 | Outpatient (BNV) | payer MEDICAID, SELFPAY | PROVIDERS: Admitting Provider Psychiatry & Neurology Psychiatry; Emergency Provider Emergency Medicine; Visit Provider Internal Medicine Cardiovascular Disease | DX: I45.81 Long QT syndrome (principal) | CPT/HCPCS: 93010 ==

== ENCOUNTER → 2024-08-17 14:42 | Outpatient (BNV) | payer OTHER, SELFPAY | PROVIDERS: Admitting Provider Psychiatry & Neurology Psychiatry; Emergency Provider Emergency Medicine; Visit Provider Psychiatry & Neurology Psychiatry | DX: F33.2 Major depressive disorder, recurrent severe without psychotic features (principal); F43.11 Post-traumatic stress disorder, acute | CPT/HCPCS: 90792; 99231; 99232 ==

== ENCOUNTER 2025-09-30 13:07 | Emergency (ER) | payer SELFPAY ==
--- NOTE | ~2025-09-30 | CT_ITS ---
EXAMINATION: CT ABDOMEN AND PELVIS WITH CONTRAST CLINICAL INFORMATION: Severe lower abdominal pain, bloody bowel movement. COMPARISON: None available. TECHNIQUE: Multidetector volumetric images were obtained from the superior aspect of the liver through the pubic symphysis following administration 85 mL of Omnipaque 350 intravenous contrast. Sagittal and coronal reformatted images were obtained on the technologist's workstation. Oral contrast: No This CT examination was performed using dose optimization techniques as appropriate, variously including the following: *Automated exposure control *Adjustment of mA and/or kV according to patient size (this includes techniques or standardized protocols for targeted exams where dose is matched to indication/reason for exam; i.e. extremities or head) *Use of iterative reconstruction technique FINDINGS: LUNG BASES: Lung bases are clear. No effusions. The heart size is normal. LIVER, GALLBLADDER, AND BILIARY TREE: The liver is normal in size, shape, and attenuation. No focal hepatic lesion or biliary ductal dilatation is present. The gallbladder is unremarkable with no evidence of radiopaque gallstones, gallbladder wall thickening, or obvious pericholecystic inflammatory changes. PANCREAS: Unremarkable. SPLEEN: Unremarkable. ADRENAL GLANDS: Unremarkable. KIDNEYS AND URETERS: There is moderate left hydronephrosis and left hydroureter secondary to stacked calculi in the most distal left ureter measuring 8 x 3 mm, just abutting the UVJ. Mild urothelial enhancement of the proximal ureter and renal pelvis may indicate associated infection. There is a delayed left nephrogram. There is a subcentimeter cyst in the superior right kidney. The right kidney is otherwise normal. The right ureter is normal. BLADDER: Underdistended. Grossly normal. GASTROINTESTINAL TRACT: Mild diffuse wall thickening of the colon is present, unknown if manifestation of underdistention or actual inflammation. The rectum is normal. The small bowel is normal in caliber and course. There is no CT evidence of appendicitis. ABDOMINAL WALL: There are small fat-containing inguinal hernias bilaterally. LYMPH NODES: There is no abnormal lymphadenopathy. VASCULAR: Normal. PELVIC VISCERA: The prostate and seminal vesicles are normal. OSSEOUS STRUCTURES: There is no suspicious lytic or blastic bone lesion. CT/CT abdomen pelvis w IV con IMPRESSION: 1. Moderate left hydronephrosis and hydroureter secondary to stacked calculi in the distal most left ureter measuring 8 x 3 mm. 2. Mild diffuse wall thickening of the colon is present, unknown if manifestation of underdistention or actual colonic inflammation. Recommend correlation for signs and symptoms of colitis. Electronically signed by: Nestor Johnson MD 09/30/2025 03:50 PM [facility] EDUARD[facility] ELL[facility]
[2025-09-30 13:08] VITALS: BP 121/88; PULSE 116; RESP 22; TEMP 36.2; O2SAT 95; BMI 26.3
--- NOTE | 2025-09-30 13:09 | ED_ITS ---
HPI - Abdominal Pain General Chief Complaint: Abdominal Pain Stated Complaint: lower abd pain Time Seen by Provider: 09/30/25 13:16 Source: patient Mode of arrival: ambulatory Limitations: no limitations History of Present Illness ED Provider: Jesus Cevallos PA-C HPI narrative: 40 yo male with history of polysubstance abuse, depression, PTSD who presents to the ER for evaluation of severe central lower abdominal pain that started last night. he states he drank about 350mL Júnior's vodka yesterdy and fell asleep. He woke up with severe lower abdominal pain and diarrhea. He states there was a small amount of blood on the paper when he wiped, no bloody BMs or melena. He has not vomited but has been nauseated. He denies urinary symptoms, fevers, chills, chest pain or SOB. He reports the pain is severe, cramping and stabbing in nature. It is centrally located in his lower abdomen and does not radiate. He has history of appendectomy in the past. No other abdominal surgeries. MD elicited complaint: abdominal pain Pertinent past history: none Onset (ago): hour(s) Pain Consistency: constant Location: suprapubic Severity: severe Pain scale (0-10): 10 Quality: cramping and stabbing Radiation: none Migration to: no migration Exacerbating factors: nothing Relieving factors: nothing Associated symptoms: nausea and diarrhea Related Data Previous Rx's ?Medication ?Instructions ?Recorded escitalopram oxalate 10 mg tablet 10 mg PO DAILY 30 da ys #30 tabs 08/22/24 hydroxyzine HCl 25 mg tablet 25 mg PO Q6H PRN Anxiety 30 days 08/22/24 #30 tabs naltrexone 50 mg tablet 25 mg (1/2 x 50 mg) PO DAILY 30 08/22/24 days #15 tabs nicotine (polacrilex) 2 mg gum 2 mg buccal Q2H PRN Nam otine 08/22/24 Cravings 30 days #100 ea trazodone 100 mg tablet 100 mg PO BEDTIME PRN Insomn ia 30 08/22/24 days #30 tabs naproxen 500 mg tablet,delayed 500 mg PO BID #20 tabs 09/30/25 release tamsulosin 0.4 mg capsule (Flomax) 0.4 mg PO DAILY #30 caps 09/30/25 Allergies Allergy/AdvReac Type Severity Reaction Status Date / Time No Known Allergies Allergy Verified 09/30/25 13:11 Review of Systems Review of Systems Yes all other systems are reviewed and are negative FOR[facility]LY [facility] Past Medical History Medical History (Updated 09/30/25 @ 15:46 by TAIWO Mcnair) Anxiety and depression Social History Social History Household Members: Family Housing: House Do you presently have visiting nurse or other home services: No Alcohol intake: current Alcohol intake frequency: 3 or more drinks per day Alcohol type: hard liquor Patient Tobacco Use Status: Current everyday Tobacco user Tobacco use type: Cigarette Cigarettes Per Day: 10 Smoked in Last 30 Days: Yes Use of substances other than those prescribed or required for medical reasons: No Substance Use Type: Crack/Cocaine Advance Directives: No Advance Directives Information Provided: No service: No Sexual orientation: Straight/Heterosexual Physical Exam ED Exam Exam: Appearance: Alert young male laying on his side in severe pain, curled up. Head: normocephalic, atraumatic. Eyes: Pupils equal, round and reactive to light. ENT: Pharynx normal. No tonsillar swelling or exudate. Neck: Normal inspection. Neck supple. CVS:tachycardic, regular rhythm, Pulses normal. Respiratory: No respiratory distress. Breath sounds normal. Abdomen: tense, mildly distended with severe lower abdominal tenderness and guarding, no rebound. present +BS x4 Skin: Skin warm and dry. Normal skin color. Normal skin turgor. No rashes. Extremities: No lower extremity edema. No joint swelling. Neuro/psych: Oriented X 3. nonfocal. Normal speech and cognition. Vital Signs: Vital Signs - 24 hr 09/30/25 13:08 09/30/25 15:14 Temperature 97.1 F Pulse Rate 116 H 93 Respiratory Rate 22 H 18 Blood Pressure 121/88 142/90 H Pulse Oximetry 95 98 Oxygen Delivery Method Room Air BMI result Body Mass Index 26.3 Course Course Course Narrative: This is an RME: Additional HPI, ROS, PE not included below will be deferred to primary provider. RME assessment and note performed by: Vickie Lentz PA-C This is a [id number], with a hx of anxiety, depression, and PTSD, who presents to the ER with a complaint of lower abdominal pain since last night. Pain radiates into into his rectum. No urinary symptoms. No nausea, vomiting. Diarrhea x2 days, does admit to having some bloody stool. Hx of appendectomy. Plan: Labs, further ER eval needed Medical Decision Making Medical Decision Making [facility] Narrative: 40-year-old male with a history of polysubstance abuse, depression, PTSD, who presents to the ER for evaluation of severe lower abdominal pain that started last night. He arrives to the ER in obvious discomfort, tachycardic and uncomfortable appearing. He has abdominal tenderness with guarding in the suprapubic area, lower abdomen. IV was established and he was given IV morphine and Zofran along with IV fluids. Labs showing a leukocytosis of 15. Lactic acid checked which was negative. CT scan of the abdomen and pelvis is showing moderate left hydronephrosis and hydroureter due to stack calculi in the distal most ureter measuring 8 x 3 mm. patient had minimal improvement with IV morphine and was given 1 mg of IV Dilaudid, this was followed by IV Toradol once diagnosis of kidney stone was established. Patient had significant improvement in his pain and symptoms. Urinalysis is negative for infection. overall he is feeling much better after medications for pain control. He is tolerating p.o.. He states he does not have health insurance and therefore can not follow-up with the urologist. Will send prescriptions for Flomax and NSAID to [facility] ($4). comfortable discharge home, hopefully he will pass these large stones on his own given the location. He was advised to return to the ER for possible intervention if he has worsening pain. Patient expressed understanding and is stable for discharge home Differential Diagnosis Differential Diagnoses: The differential diagnosis associated with the presentation includes acute abdomen, colitis, diverticulitis, bowel perforation, pancreatitis, kidney stone Admission/Observation Consideration of admission/observation: Escalation of care including admission/observation considered Lab Data [facility] Lab Attestation statement: I reviewed the patient's lab results. leukocytosis, normal renal function 09/30/25 14:12 09/30/25 14:12 Labs: Lab Results 09/30/25 09/30/25 09/30/25 Range/Units 14:12 14:40 16:26 WBC 15.0 H (4.8-10.8) X10*3/uL RBC 5.42 (4.60-5.80) X10*6/uL Hgb 14.1 (14.0-18.0) g/dl Hct 43.4 (42.0-52.0) % MCV 80.1 (80.0-98.0) fL MCH 26.0 L (27.0-33.0) pg MCHC 32.5 (31.0-36.0) g/dl RDW 14.9 (11.0-16.0) % Plt Count 401 H (160-400) X10*3/uL MPV 9.7 (9.4-12.4) fL Immature Gran % (Auto) 0.3 (0.0-0.4) % Neut % (Auto) 73.0 (45-73) % Lymph % (Auto) 18.4 L (20-40) % [place] % (Auto) 7.4 (2-11) % Eos % (Auto) 0.6 (0-4) % Baso % (Auto) 0.3 (0-2) % Lymph # (Auto) 2.8 (1.2-4.9) X10*3/uL [place] # (Auto) 1.1 (0.1-1.2) X10*3/uL Eos # (Auto) 0.1 (0.0-0.4) X10*3/uL Baso # (Auto) 0.1 (0.0-0.2) X10*3/uL Abs Immat Gran (auto) 0.04 H (0.00-0.03) X10*3/uL Absolute Neuts (auto) 10.9 H (2.0-8.3) x10*3/uL Absolute Nucleated RBC 0.000 (0.0-0.012) X10*3/uL Nucleated RBC % (auto) 0.0 (0.0-0.2) /100WBC Hold Purple Top SEE NOTE Sodium 140 (135-145) mmol/L Potassium 4.1 (3.3-5.1) mmol/L Chloride 108 (96-108) mmol/L Carbon Dioxide 25 (22-29) mmol/L Anion Gap 11 L (12-20) BUN 16 (9-16) mg/dL Creatinine 1.17 (0.5-1.4) mg/dL Estim Creat Clear Calc 90.2 Estimated GFR > 60 Random Glucose 123 H (60-115) mg/dL Lactic Acid 1.5 (0.5-2.0) mmol/L Calcium 9.8 (8.4-10.2) mg/dL Magnesium 1.9 (1.6-2.6) mg/dL Total Bilirubin 0.4 (0.0-1.0) mg/dL Direct Bilirubin 0.1 (0.0-0.5) mg/dL AST 17 (5-37) U/L ALT 17 (0-40) U/L Alkaline Phosphatase 125 H (39-117) U/L Total Protein 7.0 (6.5-8.0) g/dL Albumin 4.4 (3.5-5.0) g/dL Lipase 22 (8-78) U/L Urine Color Yellow Urine Appearance Clear Urine pH 6.0 (5.0-9.0) Ur Specific [place] >= 1.030 H (1.005-1.025) Urine Protein Negative (Neg-Trace) mg/dL Urine Glucose (UA) Negative (Negative) mg/dL Urine Ketones Negative (Negative) mg/dL Urine Blood Large (3+) H (Negative) Urine Nitrite Negative (Negative) Ur Leukocyte Esterase Negative (Negative) Ethyl Alcohol < 10 mg/dL Independent Interpretation I performed an independent interpretation of an: CT Scan Interpretation: left ureterovesicular large stone w/ left sided hydronephrosis Radiology Impression Discussion of test interpretation with radiology: I have reviewed the radiologist's reading. External Record Review External record reviewed: Prior outpatient labs Prescription Management I considered prescription management with: Pain Medication and Antibiotic Chronic Conditions Patient?s care impacted by: Other (polysubstance abuse) Social Determinants Patient?s care significantly limited by Social Determinants of Health including: Inadequate housing, Problems related to primary support group and Other Social Determinant of Health lack of health insurance, in the process of applying Medications Administered Discontinued Medications Generic Name Dose Route Start Last Admin Trade Name Freq PRN Reason Stop Dose Admin Hydromorphone HCl 1 mg 09/30/25 14:41 09/30/25 14:49 Hydromorphone Hcl 1 Mg/Ml Syringe IVPUSH 09/30/25 14:42 1 mg ONCE ONE Administration Protocol Lactated Ringer's 1,000 mls @ 999 mls/hr 09/30/25 14:00 09/30/25 14:09 Lr IV 09/30/25 15:00 999 mls/hr .Q1H1M ZULAY Administration Lactated Ringer's 1,000 mls @ 999 mls/hr 09/30/25 15:30 09/30/25 15:32 Lr IV 09/30/25 16:30 999 mls/hr .Q1H1M ZULAY Administration Iohexol 100 ml 09/30/25 15:10 09/30/25 15:24 Iohexol 350 Mg/Ml 100 Ml Infus..Btl IV 09/30/25 15:11 85 ml ONCE ONE Administration Ketorolac Tromethamine 15 mg 09/30/25 15:27 09/30/25 15:32 Ketorolac Tromethamine 15 Mg/Ml Vial IVPUSH 09/30/25 15:28 15 mg ONCE ONE Administration Morphine Sulfate 4 mg 09/30/25 13:48 09/30/25 14:08 Morphine Sulfate 4 Mg/Ml Cartridge IVPUSH 09/30/25 13:49 4 mg ONCE ONE Administration Protocol Ondansetron HCl 4 mg 09/30/25 13:48 09/30/25 14:06 Ondansetron Hcl 4 Mg/2 Ml Vial IVPUSH 09/30/25 13:49 4 mg ONCE ONE Administration Critical Care Time Critical Care Time Critical Care Time: Yes Total Critical Care Time: 42 Attestation: I have personally provided critical care time exclusive of time spent on separately billable procedures. Time includes review of lab data, radiology results, discussion with consultants, and monitoring for potential decompensation. Intervention performed as documented. Discharge Plan Discharge Clinical Impression: Hydronephrosis with ureteral calculus Patient Disposition: Home, Self-Care Instructions: Hydronephrosis (ED), Ureteral Stones (ED) Additional Instructions: You have large kidney stones in the lower ureter causing swelling of the left kidney. The stones are very close to passing on their own, but they are large. Recommend taking the prescribed medications as directed. Recommend increasing your water intake. Recommend following up with Urology - call for an appointment If you develop new or worsening symptoms call 911 or come back to the ER for further evaluation. Prescriptions: New tamsulosin [Flomax] 0.4 mg capsule 0.4 mg PO DAILY Qty: 30 0RF naproxen 500 mg tablet,delayed release (DR/EC) 500 mg PO BID Qty: 20 0RF No Action nicotine (polacrilex) 2 mg Gum 2 mg buccal Q2H PRN (Reason: Nicotine Cravings) 30 Days Qty: 100 0RF escitalopram oxalate 10 mg Tablet 10 mg PO DAILY 30 Days Qty: 30 1RF hydroxyzine HCl 25 mg Tablet 25 mg PO Q6H PRN (Reason: Anxiety) 30 Days Qty: 30 1RF naltrexone 50 mg Tablet 25 mg PO DAILY 30 Days Qty: 15 1RF trazodone 100 mg Tablet 100 mg PO BEDTIME PRN (Reason: Insomnia) 30 Days Qty: 30 1RF Referrals: [facility] [place] Urology Services [Provider Group, Urology] Referral Note: 8x3 obstructing kidney stone, distal ureter Clinical Impression: Hydronephrosis with ureteral calculus Print Language: Estonian
[2025-09-30] MEDS: Lactated Ringers 1,000 ML 999 ML IV ×2 (14:09→15:32)
[2025-09-30 14:17] LABS: MANUAL DIFF FLAG NO
[2025-09-30 14:18] LABS: Hematocrit 43.4 % (42.0-52.0); Hemoglobin 14.1 g/dl (14.0-18.0); Imm Gran Abs Auto 0.04 X10*3/uL (0.00-0.03); Imm Gran Pct Auto 0.3 % (0.0-0.4); Lymphocytes Absolute Auto 2.8 X10*3/uL (1.2-4.9); Mean Corpuscular HGB Conc 32.5 g/dl (31.0-36.0); Mean Corpuscular Hemoglobin 26.0 pg (27.0-33.0); Mean Corpuscular Volume 80.1 fL (80.0-98.0); NRBC Abs Auto 0.000 X10*3/uL (0.0-0.012); NRBC Pct Auto 0.0 /100WBC (0.0-0.2); Platelet Count 401 X10*3/uL (160-400); Red Blood Count 5.42 X10*6/uL (4.60-5.80); White Blood Count 15.0 X10*3/uL (4.8-10.8)
[2025-09-30 14:34] LABS: Alanine Aminotransferase 17 U/L (0-40); Albumin Level 4.4 g/dL (3.5-5.0); Alkaline Phosphatase 125 U/L (39-117); Anion Gap 11 (12-20); Aspartate Amino Transferase 17 U/L (5-37); Blood Urea Nitrogen 16 mg/dL (9-16); Calcium 9.8 mg/dL (8.4-10.2); Carbon Dioxide 25 mmol/L (22-29); Chloride 108 mmol/L (96-108); Creatinine Clr Calc Pharmacy 90.2; Estimated Glomerular Filt Rate > 60; Lipase 22 U/L (8-78); Magnesium 1.9 mg/dL (1.6-2.6); Potassium 4.1 mmol/L (3.3-5.1); Sodium 140 mmol/L (135-145); Total Protein 7.0 g/dL (6.5-8.0)
[2025-09-30 15:14] VITALS: BP 142/90; PULSE 93; RESP 18; O2SAT 98
[2025-09-30] MEDS: iohexoL 350 MG/ML 100 ML INFUS..BTL IV (15:24)
[2025-09-30 16:35] LABS: Appearance Urine Clear; Glucose Urine UA Negative (Negative); PH 6.0 (5.0-9.0); Specific Gravity - Urine >= 1.030 (1.005-1.025); UMIC TRIGGER UACC YES
[2025-09-30 16:50] VITALS: BP 134/76; PULSE 88; RESP 18; TEMP 36.6; O2SAT 98
[2025-09-30 17:33] LABS: Cannabinoid Screen Urine Not Detected (Not Detect)
--- NOTE | 2025-10-01 10:41 | PC.NURSE ---
LR 1000cc finished infusing.
== END 2025-09-30 16:50 | disposition home or self-care (01) ==
PROVIDERS: Physician Assistant; Physician Assistant Medical; Emergency Provider Emergency Medicine
DX: N13.30 Unspecified hydronephrosis (principal); N20.1 Calculus of ureter; R10.30 Lower abdominal pain, unspecified; R19.7 Diarrhea, unspecified; F32.A Depression, unspecified; F41.9 Anxiety disorder, unspecified; F11.90 Opioid use, unspecified, uncomplicated; Z79.899 Other long term (current) drug therapy
CPT/HCPCS: 36415; 74177; 80048; 80076; 80307; 81001; 83605; 83690; 83735; 85025; 87040; 96374; 96375; 99285; J1171; J1885; J2270; J2405; J7120; Q9967

== ENCOUNTER → 2025-09-30 13:23 | Outpatient (BNV) | payer SELFPAY | PROVIDERS: Emergency Provider Emergency Medicine; Visit Provider Radiology Diagnostic Radiology | DX: N13.30 Unspecified hydronephrosis (principal); N20.1 Calculus of ureter; K63.89 Other specified diseases of intestine | CPT/HCPCS: 74177 ==